=== PATIENT | female | born 1975 | race Caucasian/White ===

== ENCOUNTER 2016-08-13 10:22 | Day surgery (SDC) | payer BC ==
[2016-08-13] MEDS ORDERED: PROPOFOL INJ 200 MG/20 ML VIAL IV ONE (11:14)
--- NOTE | 2016-08-13 12:13 | Operative Report ---
Operative Report DATE OF SURGERY: 08/13/16 Operative Report: The risks benefits and alternatives of the procedure explained to the patient in detail and informed consent is obtained that GIF Olympus video scope was inserted into the patient's mouth and hypopharynx the esophagus is identified intubated and insufflated the scope was then advanced through the esophagus stomach and duodenum retroflexion maneuver is done the esophagus stomach and first and second portions of the duodenum examined PREOPERATIVE DIAGNOSIS: Epigastric pain, gastroesophageal reflux disease. Evaluation for Abraham's esophagus POSTOPERATIVE DIAGNOSIS: Hiatal hernia. Gastritis, status post biopsy rule out Helicobacter pylori. Duodenitis OPERATION: EGD with biopsy SURGEON: GET RAMOS ANESTHESIA: LMAC TISSUE REMOVED OR ALTERED: Gastric specimens obtained rule out Helicobacter pylori COMPLICATIONS: None. ESTIMATED BLOOD LOSS: none. INTRAOPERATIVE FINDINGS: Normal esophagus no evidence of Abraham's esophagus. Small hiatal hernia. Gastritis. Duodenitis PROCEDURE: Patient tolerated the procedure well. No immediate postprocedure complications are noted. Patient is discharged in good condition. Discharge date 08/13/2016. Discharge diet: Regular. Discharge activity: Regular. Patient does have a 2-3 week follow-up to discuss findings. She'll need to get some scheduled for the CT scan which was previously ordered. She is instructed to call the office or proceed to the emergency room if there are any further problems or questions. We'll await biopsies and treat if needed
[2016-08-13 12:16] VITALS: BP 107/73
== END 2016-08-13 12:20 | disposition home or self-care (01) ==
LOC: END 10:22
PROVIDERS: ATTEND Internal Medicine Gastroenterology
PROC: 0DB68ZX Excision of Stomach, Via Natural or Artificial Opening Endoscopic, Diagnostic (ICD-10-PCS; principal; 2016-08-13 14:00)
DX: K21.9 Gastro-esophageal reflux disease without esophagitis (principal); K29.50 Unspecified chronic gastritis without bleeding; K44.9 Diaphragmatic hernia without obstruction or gangrene; K58.9 Irritable bowel syndrome, unspecified; K29.80 Duodenitis without bleeding; Z87.891 Personal history of nicotine dependence; Z79.899 Other long term (current) drug therapy; Z79.1 Long term (current) use of non-steroidal anti-inflammatories (NSAID)
CPT/HCPCS: 43239; 88342 ×2; 88305 ×2; J2704; 740

== ENCOUNTER 2017-03-01 07:42 | Day surgery (SDC) | payer BC ==
[2017-03-01] MEDS ORDERED: MIDAZOLAM 2 MG/2 ML INJ ONE ×2 (09:18)
[2017-03-01] MEDS ORDERED: KETAMINE HCL INJ 500 MG/10 ML VIAL ONE (09:19)
[2017-03-01] MEDS ORDERED: PROPOFOL INJ 200 MG/20 ML VIAL IV ONE (09:19)
[2017-03-01] MEDS ORDERED: DIPHENHYDRAMINE HCL 50 MG/ML VIAL IV PRN (09:53)
[2017-03-01] MEDS ORDERED: MEPERIDINE HCL/PF INJ 25 MG/1 ML DISP.SYRIN IV PRN (09:53)
[2017-03-01] MEDS ORDERED: FENTANYL CITRATE INJ/PF 100 MCG/2 ML AMPUL IV PRN ×3 (09:53)
[2017-03-01] MEDS ORDERED: PROMETHAZINE HCL INJ 25 MG/1 ML VIAL IV PRN ×2 (09:53)
[2017-03-01] MEDS ORDERED: MORPHINE SULFATE 10 MG/ML INJ IV PRN (09:53)
[2017-03-01] MEDS ORDERED: OXYCODONE-ACETAMINOPHEN 5-325 MG TABLET PO PRN ×2 (09:53)
[2017-03-01 10:53] LABS: ABSOLUTE BASOPHILS # (AUTO) 0.1 10^3/uL (0.0-0.2); ABSOLUTE EOSINOPHILS # (AUTO) 0.1 10^3/uL (0.0-0.6); ABSOLUTE LYMPHOCYTES (AUTO) 1.3 10^3/uL (0.5-4.7); ABSOLUTE MONOCYTES (AUTO) 0.5 10^3/uL (0.1-1.4); ABSOLUTE NEUT (AUTO) 2.9 10^3/uL (1.7-8.2); BASOPHILS % (AUTO) 1.3 % (0-2); EOSINOPHILS % (AUTO) 2.1 % (0-6); HEMATOCRIT 37.8 % (36.0-47.0); HEMOGLOBIN 12.8 g/dL (12.0-15.5); HGB HCT DIFFERENCE 0.6; LYMPHOCYTES % (AUTO) 26.5 % (13-45); MEAN CORPUSCULAR HEMOGLOBIN 32.2 pg (27.0-33.4); MEAN CORPUSCULAR HGB CONC 33.9 g/dL (32.0-36.0); MEAN CORPUSCULAR VOLUME 95 fl (80-97); MONOCYTES % (AUTO) 9.9 % (3-13); RED BLOOD COUNT 3.99 10^6/uL (3.72-5.28); RED CELL DISTRIBUTION WIDTH 12.5 % (11.5-14.0); SEGMENTED NEUTROPHILS % (AUTO) 60.2 % (42-78); WHITE BLOOD COUNT 4.8 10^3/uL (4.0-10.5)
[2017-03-01 11:11] LABS: AMYLASE 62 U/L (30-110); CHLORIDE 110 mmol/L (98-107); GLUCOSE 90 mg/dL (75-110); TOTAL PROTEIN 6.4 g/dL (6.3-8.2)
[2017-03-01 11:12] LABS: ALANINE AMINOTRANSFERASE 32 U/L (9-52); ALKALINE PHOSPHATASE 55 U/L (38-126); ANION GAP 10 (5-19); ASPARTATE AMINO TRANSFERASE 19 U/L (14-36); BILIRUBIN,DIRECT 0.3 mg/dL (0.0-0.4); BILIRUBIN,TOTAL 0.3 mg/dL (0.2-1.3); BLOOD UREA NITROGEN 16 mg/dL (7-20); CALCIUM 9.4 mg/dL (8.4-10.2); CARBON DIOXIDE 24 mmol/L (22-30); CREATININE RESULT 1.04 mg/dL (0.52-1.25); LIPASE 159.7 U/L (23-300); POTASSIUM 3.8 mmol/L (3.6-5.0); SODIUM 143.7 mmol/L (137-145)
--- NOTE | 2017-03-01 11:12 | Operative Report ---
Operative Report DATE OF SURGERY: 03/01/17 Operative Report: The risks benefits and alternatives of the procedure explained to the patient in detail and informed consent is obtained.A GIF Olympus video scope was inserted into the patient's mouth and hypopharynx ,the esophagus is identified intubated and insufflated, the scope was then advanced through the esophagus stomach and duodenum, retroflexion maneuver is done, the esophagus stomach and first and second portions of the duodenum examined PREOPERATIVE DIAGNOSIS: Epigastric pain rule out peptic ulcer disease POSTOPERATIVE DIAGNOSIS: Gastritis noted, perhaps bile reflux. Biopsies obtained to rule out for Helicobacter pylori. Lidocaine solution infused into the stomach cavity, 15 cc OPERATION: EGD with biopsy SURGEON: GET RAMOS ANESTHESIA: LMAC - See anesthesia note TISSUE REMOVED OR ALTERED: Gastric mucosal specimen obtained COMPLICATIONS: None. ESTIMATED BLOOD LOSS: None. INTRAOPERATIVE FINDINGS: As described above. PROCEDURE: Patient tolerated procedure well. No immediate postprocedure complications are noted. Patient discharged in good condition. Discharge date 03/01/2017. Discharge diet: Regular. Discharge activity: Regular. 2-3 week follow-up to discuss findings. Patient is instructed to call the office or proceed to the emergency room should there be any further problems or questions. We will wait on pathology.
[2017-03-01 13:04] VITALS: BP 102/66
== END 2017-03-01 11:30 | disposition home or self-care (01) ==
LOC: OROUT 07:42
PROVIDERS: ATTEND Internal Medicine Gastroenterology
PROC: 0DB68ZX Excision of Stomach, Via Natural or Artificial Opening Endoscopic, Diagnostic (ICD-10-PCS; principal; 2017-03-01 09:30)
DX: K29.50 Unspecified chronic gastritis without bleeding (principal); K21.9 Gastro-esophageal reflux disease without esophagitis; E07.9 Disorder of thyroid, unspecified; G43.909 Migraine, unspecified, not intractable, without status migrainosus; F17.210 Nicotine dependence, cigarettes, uncomplicated; Z79.899 Other long term (current) drug therapy
CPT/HCPCS: 43239; 36415; 82150; 82607; 83690; 84703; 85025; 80076; 80048; 88342 ×2; 88305 ×2; J2250; J3490; J2704; 740

== ENCOUNTER 2017-10-04 08:53 | Day surgery (SDC) | payer BC ==
[2017-10-04] MEDS ORDERED: DIPHENHYDRAMINE HCL 25 MG CAPSULE ONE (09:18)
[2017-10-04] MEDS ORDERED: MIDAZOLAM 2 MG/2 ML INJ ONE (10:29)
[2017-10-04] MEDS ORDERED: ONDANSETRON HCL INJ/PF 4 MG/2 ML SDV ONE (10:29)
[2017-10-04] MEDS ORDERED: PROPOFOL INJ 200 MG/20 ML VIAL IV ONE (11:56)
[2017-10-04] MEDS ORDERED: DIPHENHYDRAMINE HCL 50 MG/ML VIAL IV PRN (11:57)
[2017-10-04] MEDS ORDERED: MEPERIDINE HCL/PF INJ 25 MG/1 ML DISP.SYRIN IV PRN (11:57)
[2017-10-04] MEDS ORDERED: PROMETHAZINE HCL INJ 25 MG/1 ML VIAL IV PRN ×2 (11:57)
[2017-10-04] MEDS ORDERED: KETAMINE HCL INJ 500 MG/10 ML VIAL ONE (11:58)
--- NOTE | 2017-10-04 12:16 | Operative Report ---
Operative Report DATE OF SURGERY: 10/04/17 Operative Report: The risks benefits and alternatives of the procedure explained to the patient in detail and informed consent is obtained.A GIF Olympus video scope was inserted into the patient's mouth and hypopharynx, the esophagus is identified intubated and insufflated, the scope was then advanced through the esophagus stomach and duodenum ,retroflexion maneuver is done ,the esophagus stomach and first and second portions of the duodenum examined PREOPERATIVE DIAGNOSIS: Gastritis, possible Helicobacter pylori gastritis POSTOPERATIVE DIAGNOSIS: Gastritis, biopsies obtained OPERATION: EGD with biopsy SURGEON: GET RAMOS ANESTHESIA: LMAC TISSUE REMOVED OR ALTERED: As noted above COMPLICATIONS: None. ESTIMATED BLOOD LOSS: None. INTRAOPERATIVE FINDINGS: As described above PROCEDURE: Patient tolerated procedure well. No immediate postprocedure complications are noted. Patient discharged in good condition. Discharge date October 04, 2017 Discharge diet: Regular. Discharge activity: Regular. 2-3 week follow-up to discuss findings. Patient is instructed call the office or proceed to the emergency room should there be any further problems or questions. We will wait and pathology.
[2017-10-04] MEDS ORDERED: DEXTROSE 5%-1/2 NORMAL SALINE 1,000 ML IV PRN (12:30)
[2017-10-04] MEDS ORDERED: ACETAMINOPHEN 325 MG TABLET PO PRN (12:31)
[2017-10-04] MEDS ORDERED: SIMETHICONE 80 MG TAB.CHEW PO PRN (12:32)
[2017-10-04] MEDS ORDERED: PROMETHAZINE HCL INJ 25 MG/1 ML VIAL INJ PRN (12:32)
[2017-10-04] MEDS ORDERED: ACETAMINOPHEN 100 ML IV ONE (12:35)
[2017-10-04 14:40] VITALS: BP 109/61
== END 2017-10-04 13:25 | disposition home or self-care (01) ==
LOC: OROUT 08:53
PROVIDERS: ATTEND Internal Medicine Gastroenterology
PROC: 0DB68ZX Excision of Stomach, Via Natural or Artificial Opening Endoscopic, Diagnostic (ICD-10-PCS; principal; 2017-10-04 11:00)
DX: K29.50 Unspecified chronic gastritis without bleeding (principal); Z87.891 Personal history of nicotine dependence; Z79.899 Other long term (current) drug therapy
CPT/HCPCS: 43239; 88342 ×2; 88305 ×2; J2250; J3490; J2405; J2704; J0131; 731

== ENCOUNTER 2019-02-05 02:02 | Emergency (ER) | payer BC ==
--- NOTE | 2019-02-05 04:16 | ER Document Report ---
ED General - General Chief Complaint: Psych Problem Stated Complaint: IVC/W PAPERS Time Seen by Provider: 02/05/19 02:59 Primary Care Provider: ALICIA LIVINGSTON MD [Primary Care Provider] - Follow up as needed Mode of Arrival: Ambulatory Information source: Patient TRAVEL OUTSIDE OF THE [place] 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 The patient currently denies suicidal ideation or homi cidal ideation on my questioning. The patient states she is been compliant with her medications, then later states she may have accidentally taken 1 of her 's oxycodone tablets which were next to her pills and she missed took what they were. Patient denies any other medication changes. The patient states she has plans for other things she can do to help her practice and reimbursement issues and she is making future plans, which she points out contradicts any suicidal intent. Patient lives with her at home, who she states is very supportive. She reports her was surprised about the IVC papers. Patient's sister had a history of paranoid schizophrenia and committed suicide by catching herself on fire. Patient reports she has a counselor/colleague that she sees almost on a weekly basis. Medications tramadol, Adderall, Wellbutrin, Topamax, Synthroid, magnesium, Valium 10 mg nightly, taurine - Related Data Allergies/Adverse Reactions: adhesive tape Allergy (Severe, Verified 02/05/19 02:03) RASH, BLISTERS latex Allergy (Intermediate, Verified 02/05/19 02:03) Generalized rash Past Medical History - General Information source: Patient, Law Enforcement - Social History Smoking Status: Never Smoker Frequency of alcohol use: Rare Drug Abuse: None Lives with: Family Family History: Other - Sister with paranoid schizophrenia. - Past Medical History Cardiac Medical History: Denies: Hx Coronary Artery Disease, Hx Heart Attack, Hx Hypertension Pulmonary Medical History: Denies: Hx Asthma, Hx Bronchitis, Hx COPD, Hx Pneumonia Neurological Medical History: Denies: Hx Cerebrovascular Accident, Hx Seizures Musculoskeletal Medical History: Denies Hx Arthritis - Immunizations Hx Diphtheria, Pertussis, Tetanus Vaccination: Yes Review of Systems - Review of Systems -: Yes All other systems reviewed and negative Physical Exam - Vital signs Vitals: Temp Pulse Resp BP Pulse Ox 97.7 F 113 H 20 113/84 99 02/05/19 02:07 02/05/19 02:07 02/05/19 02:07 02/05/19 02:07 02/05/19 02:07 - Notes Notes: PHYSICAL EXAMINATION: GENERAL: Well-appearing, well-nourished and in no acute distress. HEAD: Atraumatic, normocephalic. EYES: Pupils equal round and reactive to light, extraocular movements intact, conjunctiva are normal. ENT: Nares patent, oropharynx clear without exudates. Moist mucous membranes. NECK: Normal range of motion, supple without lymphadenopathy LUNGS: Breath sounds clear to auscultation bilaterally and equal. No wheezes rales or rhonchi. HEART: Regular rate and rhythm without murmurs ABDOMEN: Soft, nontender, nondistended abdomen. No guarding, no rebound. No masses appreciated. Female : deferred Musculoskeletal: Normal range of motion, no pitting or edema. No cyanosis. NEUROLOGICAL: Cranial nerves grossly intact. Normal speech, normal gait. Normal sensory, motor exams PSYCH: Slight flight of ideas, but she states this is consistent with her ADHD. The patient currently denies suicidal or homicidal ideation or hallucinations. Normal affect. Memory intact. SKIN: Warm, Dry, normal turgor, no rashes or lesions noted. Course - Re-evaluation Re-evalutation: 02/05/19 05:41 Patient presented with IVC papers. Patient is medically cleared for psychiatric evaluation and further care. - Vital Signs Vital signs: Temp Pulse Resp BP Pulse Ox 98 F 84 16 117/63 96 02/05/19 02:20 02/05/19 02:20 02/05/19 02:20 02/05/19 02:20 02/05/19 02:20 - Laboratory Result Diagrams: 02/05/19 03:50 02/05/19 03:50 Laboratory results interpreted by me: 02/05/19 02/05/19 03:50 03:50 Potassium 3.5 L Est GFR (Non-Af Amer) 58 L Urine Ascorbic Acid 20 H Acetaminophen < 10 L - EKG Interpretation by Me EKG shows normal: Sinus rhythm Rate: Normal Additional EKG results interpreted by me: 02/05/19 04:18 EKG is interpreted by me showed normal sinus rhythm heart rate of 81. There is no gross evidence for acute MO or ischemia noted. No old EKG available for comparison. Discharge - Discharge Clinical Impression: Involuntary commitment Disposition: PSYCH HOSP/UNIT Referrals: ALICIA LIVINGSTON MD [Primary Care Provider] - Follow up as needed
[2019-02-05 04:19] LABS: ABSOLUTE BASOPHILS # (AUTO) 0.1 10^3/uL (0.0-0.2); ABSOLUTE EOSINOPHILS # (AUTO) 0.1 10^3/uL (0.0-0.6); ABSOLUTE LYMPHOCYTES (AUTO) 1.6 10^3/uL (0.5-4.7); ABSOLUTE MONOCYTES (AUTO) 0.5 10^3/uL (0.1-1.4); ABSOLUTE NEUT (AUTO) 3.6 10^3/uL (1.7-8.2); BASOPHILS % (AUTO) 1.1 % (0-2); EOSINOPHILS % (AUTO) 2.1 % (0-6); HEMATOCRIT 40.3 % (36.0-47.0); HEMOGLOBIN 13.6 g/dL (12.0-15.5); LYMPHOCYTES % (AUTO) 27.6 % (13-45); MEAN CORPUSCULAR HEMOGLOBIN 30.5 pg (27.0-33.4); MEAN CORPUSCULAR HGB CONC 33.7 g/dL (32.0-36.0); MEAN CORPUSCULAR VOLUME 91 fl (80-97); MONOCYTES % (AUTO) 8.8 % (3-13); PLATELET COUNT 240 10^3/uL (150-450); RED BLOOD COUNT 4.46 10^6/uL (3.72-5.28); SEGMENTED NEUTROPHILS % (AUTO) 60.4 % (42-78); TOTAL CELLS COUNTED % (AUTO) 100 %; WHITE BLOOD COUNT 5.9 10^3/uL (4.0-10.5)
[2019-02-05 04:21] LABS: APPEARANCE,URINE SLIGHTLY-CLOUDY; BILIRUBIN,URINE NEGATIVE (NEGATIVE); COLOR,URINE YELLOW; GLUCOSE, URINE NEGATIVE (NEGATIVE); KETONES,URINE NEGATIVE (NEGATIVE); LEUKOCYTE ESTERASE,URINE NEGATIVE (NEGATIVE); NITRITE,URINE NEGATIVE (NEGATIVE); PROTEIN,URINE NEGATIVE (NEGATIVE); URINE SPECIFIC GRAVITY 1.011; UROBILINOGEN,URINE NEGATIVE mg/dL (<2.0)
[2019-02-05 04:40] LABS: URINE BARBITURATES SCREEN NEGATIVE; URINE COCAINE SCREEN NEGATIVE; URINE MARIJUANA (THC) SCREEN NEGATIVE; URINE METHADONE SCREEN NEGATIVE; URINE PHENCYCLIDINE SCREEN NEGATIVE
[2019-02-05 04:41] LABS: ALBUMIN 4.2 g/dL (3.5-5.0); ALKALINE PHOSPHATASE 44 U/L (38-126); ANION GAP 9 (5-19); ASPARTATE AMINO TRANSFERASE 23 U/L (14-36); BILIRUBIN,DIRECT 0.3 mg/dL (0.0-0.4); BILIRUBIN,TOTAL 0.3 mg/dL (0.2-1.3); BLOOD UREA NITROGEN 11 mg/dL (7-20); CALCIUM 9.1 mg/dL (8.4-10.2); CARBON DIOXIDE 25 mmol/L (22-30); CHLORIDE 105 mmol/L (98-107); GLUCOSE 80 mg/dL (75-110); POTASSIUM 3.5 mmol/L (3.6-5.0); TOTAL PROTEIN 6.8 g/dL (6.3-8.2)
[2019-02-05 04:43] LABS: ACETAMINOPHEN < 10 ug/mL (10-30); ALCOHOL < 10 mg/dL (NONE DETECTED)
[2019-02-05 04:46] LABS: URINE BENZODIAZEPINES SCREEN UNCONFIRMED POSITIVE
[2019-02-05 04:56] LABS: FREE T4 (FREE THYROXINE) 1.36 ng/dL (0.78-2.19)
[2019-02-05] MEDS ORDERED: DIPHENHYDRAMINE HCL 50 MG CAPSULE PO ONE (04:56)
[2019-02-05 05:10] LABS: THYROID STIMULATING HORMONE 1.66 uIU/mL (0.47-4.68)
--- NOTE | 2019-02-05 09:31 | ER Document Report ---
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 The patient currently denies suicidal ideation or homicidal ideation on my questioning. As the rounding physician this AM, I assessed the patient's labs, vitals, and records. No concerning findings this morning. Patient denies any acute complaints. Patient is cleared for disposition by behavioral health team. PHYSICAL EXAMINATION: GENERAL: Well-appearing, well-nourished and in no acute distress. HEAD: Atraumatic, normocephalic. EYES: Pupils equal round extraocular movements intact, conjunctiva are normal. ENT: Nares patent NECK: Normal range of motion LUNGS: No respiratory distress Musculoskeletal: Normal range of motion NEUROLOGICAL: Normal speech, normal gait. PSYCH: Agitated, demanding to make a phone call. SKIN: Warm, Dry, normal turgor, no rashes or lesions noted. Impression/plan" 02/05/19 18:27 Medication recommendations of Zyprexa 5 mg twice daily, Cogentin 1 mg daily and Thorazine 50 mg every 8 hours as needed for agitation. At this time IVC will be withheld.
--- NOTE | 2019-02-05 11:24 | EKG REPORT ---
SEVERITY:- NORMAL ECG - SINUS RHYTHM : Confirmed by: Emerita Bella 05-Feb-2019 11:23:38
[2019-02-05] MEDS ORDERED: IBUPROFEN 800 MG TABLET PO ONE (11:26)
[2019-02-05] MEDS ORDERED: CHLORPROMAZINE HCL 50 MG TABLET PO SCH (14:42)
[2019-02-05] MEDS ORDERED: BUPROPION HCL 100 MG TABLET PO ONE (16:55)
[2019-02-05] MEDS: BENZTROPINE MESYLATE INJ 2 MG/2 ML AMPULE IM SCH (18:07)
[2019-02-05] MEDS: OLANZAPINE INJ/PF 10 MG SDV IM SCH (18:16)
--- NOTE | 2019-02-06 10:25 | ER Document Report ---
Doctor's Note Notes: 02/06/19 10:24 Rounds: Patient was brought in for suicidal ideation. 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 She says that she just made a flippant comment about suicide and her staff took her to be serious and had her involuntarily committed. Patient says that she has been under a lot of stress lately because of finances and reimbursements and other things. Lab studies show patient's drug screen to be positive for amphetamines, but the patient is on Adderall. Patient says she has ADHD. Also has chronic pain syndrome. Patient does not want to take the Zyprexa which is recommended for her. She also insists that she needs to be out of this emergency department into her office to take care of her patients that are scheduled today. Patient's conversation is very manic, not pausing at all for input her questions, just continue with his conversation. Vital signs are all essentially normal. Patient appears to be medically stable for transfer or discharge. Stuart Toribio MD
[2019-02-06] MEDS ORDERED: TRIAMCINOLONE ACETONIDE 0.1% CREAM 15 GM TOP PRN (10:36)
[2019-02-06] MEDS: PANTOPRAZOLE SODIUM 20 MG TABLET.DR PO SCH (11:03)
[2019-02-06] MEDS: OLANZAPINE 5 MG TAB.RAPDIS PO SCH ×2 (11:03→18:43)
[2019-02-06] MEDS: BUPROPION HCL 75 MG TABLET PO SCH (11:04)
[2019-02-06] MEDS: BENZTROPINE MESYLATE INJ 2 MG/2 ML AMPULE IM SCH (11:04)
[2019-02-06] MEDS: LEVOTHYROXINE SODIUM 0.112 MG TABLET PO SCH (11:04)
[2019-02-06] MEDS: OLANZAPINE INJ/PF 10 MG SDV IM SCH ×2 (11:05→18:44)
[2019-02-06] MEDS: TOPIRAMATE 100 MG TABLET PO SCH (11:13)
[2019-02-06] MEDS: TRAMADOL HCL 50 MG TABLET PO SCH (12:02)
--- NOTE | 2019-02-06 12:29 | PSYCHOLOGICAL NOTE ---
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 Patient states reports in her IVC petition are incorrect. She denies having bipolar or ever attempting suicide in the past. She reports that she knows that she made some comments on Saturday that she feels was the basis for report. She questions why the IVC petition was not made until Saturday night and feels her staff is retaliating against her because they didn't want to work. She confirms that she stated; "I was so stressed...I could not stand this...I should just eat a bullet." She denies intent. She continued to report that her stress comes from being audited by insurance company and them denying payment. 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 She states that she deflects with humor and that sometimes it can be dark. She reports she is very upset that she has had no access to her cell phones and that [place] will be "co-contributors to any wrongful suits" against her because her patients need to have the ability to contact her 24 hours a day. Patient then goes back to discuss comments she made in regards to suicidal ideation in which she identifies as her "joking." She states that 1 of her staff members had a significant other that killed th emselves by "shooting themselves in the face" and that her employee "thought it would be a great idea for her PTSD to clean up the mess herself after." She states that she made a joking comment she would not make mess on the wall for her staff member to have to clean up; " I said I will not make you clean the wall I will do it Facebook live burned myself and protest." She confirms she feels that she has overextended herself and her staff but states again she strongly feels that they are retaliating against her. Patient then shifts to discuss her medications and starts to list them, to include [id number] regiment ; Vitamin C, Taurine, magnesium, vitamin D with calcium, and fish oil. Patient then starts to discuss that she takes baby aspirin because of a study she read about combating dementia when taking baby aspirin and drinking champagne. She reports that she has 2 bottles of champagne in her fridge at home; however, never gets around to drinking it because the only time she could drink it would be first thing in the morning. She said she cannot drive to work after drink champaine; "could you imagine if I got pulled over because I was speeding to work first thing in the morning after drinking a glass of champagne?" Patient then reports that she is currently experiencing a migraine and feels that she may have accidentally took her 's medication when she was supposed be taking her Synthroid this morning. She states that she cannot take opiates because she has opiate-induced hyperalgesia. She reports his pain medication is right next to her synthroid. Patient then states that she [facility] however states that she never argued it because "why would you argue 70% disability." Patient reports that since she is been able to regulate her pain, she has "had a blissful experience... it can be euphoric.... With a balance of chi." She then goes back to discuss allegations in regards to suicidal ideation stating that her vehicle always seems to be on empty with the light on. At first patient's transition to new topic is unclear; however, then discusses that she had requested her staff to research where she could purchase gas cans because she did not want to waste time driving around to find them. She states that she thought it would be a good idea to drive around with gas cans in her vehicle because she is always running out. She states this was the basis on them alleging she may burn herself. She denies this again and states that her sister killed herself by setting herself on fire and that suicide is like a suicide bomber going into a place and setting it off; "there is a [place] of around them." Patient begins to discuss her thoughts and feelings in regards to people committing suicide and the effects that has on others stating that her sister's affected her "her body, mind, and soul" because of her sister's suicide (sister committed suicided with patient was 15 years old). Patient states she found the perfect explanation of what suicide does to loved ones while watching blacklist. She states that they compared it to a suicide bomber and that really resonated with her, so she now makes her patients watch that clip. Clinician notes patient goes on talking about the clip then Lucio Mukherjee in his family. Patient reports that she has ADHD and if she is not medicated correctly, it may appear that she is manic. She states her current presentation is her baseline. She adamantly denies that she has bipolar. Clinician spoke with Lela, patient's employee that was part of [employer] petition. She reports concern that the patient has escalated in erratic behaviors and suicidal ideation. She disclosed "she (the patient) has been telling her patients that she is been having suicidal ideation and expressed to staff members potential plans." She continued to disclose that over the last few weeks, the patient has had increased suicidal comments which has progressed to disclosing to patient's during sessions that she has personally thought of killing herself. She has mentioned both shooting herself and setting herself on fire. She continued to disclose that the patient had made a comments, through text, to her Staff stating she would kill herself because the practice would not be the same with out her staff. There was also concerns that the patient had as ked Lela to obtain information on where she could purchase a portable gas container, then when leaving work the patient told Lela in regards to the gas can "do not worry I wont use a bullet so you do not have to clean up anymore mess. I am just going to light myself on fire with a gas can inside my [place] and Facebook live my manifesto." She discloses concern that the patient had demonstrated increased in irrational thoughts and was texting her staff members at 346 in the morning ranting about filling appointment slots. She disclosed that earlier in the evening the patient was asking how to use Facebook live through text messages in regards to privacy settings etc. Patient stated "can't have all my shit on blast unless its a dying declaration...." She continued to disclose that the patient is currently lost privileges with which she identifies as the start of the downward spiral for the patient. Staff provided screenshots of text messages and pictures of paperwork on investigation against patient in regards to "immediate threat to health or safety, nonsexual dual relationship or boundary violation, violation of code of ethics, and other unprofessional conduct; inappropriate discussions with vulnerable patients." Staff reports that the patient has been discussing her thoughts on wanting to kill herself with psychiatric patients. They also disclosed concern that patient had been researching how long it takes to by fire and remote areas in [facility] on her computer (patient left open tabs on her computer with this information). [facility]. Patient has diagnosis of major depressive disorder and is received 70% disability specifically for that diagnosis. All other diagnoses from the [facility] are medical. They provided patient's current medication list: Wellbutrin 150 mg twice daily Diazepam 10 mg 3 times daily Benadryl 50 mg 4 times daily as needed for allergies Ibuprofen 800 mg 3 times daily Synthroid 0.125 take 1 tablet by mouth daily on empty stomach 30 minutes before meal, take half tablet on Saturdays omeprazole 20 mg daily prochlorperazine merleate 10mg 3 times daily as needed for nausea Rizatriptan Benzoate 10mg twice daily as needed for migraine may repeat dose in 2 hours if needed topamax 200 mg daily tramadol 100 mg 4 times daily triamcinolone acetonide 0.1% cream apply to affected area twice daily Non [facility] prescription of Adderall 20 mg tablet; take 20 mg by mouth twice daily Clinician spoke with patient's who expresses his disbelief in the concerns for patient's suicidal ideation. 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 He confirms they have plan of care and contingent plans in emergency situations and agrees to in act the contingent plan for continued access to care in emergency situations. Patient is alert and orientated to person, place, time and circumstance. Mood is manic with congruent affect. Patient denies suicidal homicidal ideation stating that is just a dark sense of humor. Delusions are absent. Thought content is tangential. Eye contact is poor. Conversational speech is pressured. Psychomotor agitation is noted with constant movement. Patient's hands have noted tremors. Intellectual abilities appear to be average range. attention and concentration are poor. Insight, judgment, impulse control are poor. Major depressive disorder per history provided by [facility] R/O Bipolar; patient is currently demonstrating manic R/O PTSD Clinician notes patient reports ADHD diagnosis however this diagnosis is not listed with the [place] Medication recommendations per [facility]'s contracted psychiatrist Dr.Akintayo FRAZIER are as follows: Zyprexa 5 mg twice daily Cogentin 1 mg daily Thorazine 50 mg every 8 hours as needed please decrease home medication of Wellbutrin to 150 mg daily please discontinue home medication of Adderall and Diazepam Impression\\plan: Patient is recommended to continue under IVC. Patient is demonstrating significant issues and insight and judgment in regards to comments that she identifies as joke to her staff members. There is concern that the patient has made multiple suicidal ideation comments over the last few weeks, then started to research and obtain means the last 2 days. Patient presents manic with tangential thoughts and pressured speech. Medication augmentations have been provided. Dr. Vick was consulted to care management of this patient; attending physicians in agreement with augmentations and disposition.
[2019-02-06] MEDS: RIZATRIPTAN 10 MG PO PRN (15:36)
[2019-02-06] MEDS ORDERED: PROCHLORPERAZINE MALEATE 10 MG TABLET PO ONE (21:25)
[2019-02-06] MEDS ORDERED: DIPHENHYDRAMINE HCL 50 MG/ML VIAL IM ONE (21:29)
[2019-02-06] MEDS ORDERED: IBUPROFEN 800 MG TABLET PO ONE (21:30)
[2019-02-07] MEDS: TRAMADOL HCL 50 MG TABLET PO SCH ×3 (02:37→17:41)
[2019-02-07] MEDS: LEVOTHYROXINE SODIUM 0.112 MG TABLET PO SCH (09:43)
[2019-02-07] MEDS: BENZTROPINE MESYLATE 1 MG TABLET PO SCH (09:44)
[2019-02-07] MEDS: CHLORPROMAZINE HCL 50 MG TABLET PO PRN (09:44)
[2019-02-07] MEDS: PANTOPRAZOLE SODIUM 20 MG TABLET.DR PO SCH (09:44)
[2019-02-07] MEDS: TOPIRAMATE 100 MG TABLET PO SCH (09:45)
[2019-02-07] MEDS: OLANZAPINE 5 MG TAB.RAPDIS PO SCH ×2 (09:45→17:41)
[2019-02-07] MEDS: BUPROPION HCL 75 MG TABLET PO SCH ×2 (09:45→20:49)
[2019-02-07] MEDS: OLANZAPINE INJ/PF 10 MG SDV IM SCH ×2 (09:46→17:38)
[2019-02-07] MEDS: RIZATRIPTAN 10 MG PO PRN ×2 (09:53→20:28)
[2019-02-07] MEDS: PROCHLORPERAZINE MALEATE 10 MG TABLET PO PRN ×2 (09:53→20:28)
--- NOTE | 2019-02-07 10:31 | ER Document Report ---
Doctor's Note Notes: 02/07/19 10:29 Rounds: Chart reviewed. Patient sleeping at this time so not interviewed. Patient is being evaluated and treated for bipolar disorder with manic presentation. History of depression. Mental health has evaluated the patient says that he thinks she is improving on the medication regimen prescribed here. No new lab studies to look at today. Patient's drug screen was positive for benzos, opiates, and amphetamines. Patient is on Adderall. Vital signs are also normal. Patient appears to be medically stable for transfer or discharge. Stuart Dolan MD 02/07/19 15:42 Patient is now awake and she is complaining of a migraine headache. Will order medications that she usually receives. Vital signs are all normal. Patient appears to be medically stable for transfer or discharge. Patient is unhappy that she is not being discharged to go home because she has multiple treatment modalities for herself letter including a support dog. Stuart Dolan MD. (LAUREN DOLAN) 02/07/19 20:13 Patient is requesting her Wellbutrin be provided to her twice a day. Review of chart notes patient was taken 150 mg p.o. of Wellbutrin every 12 hours. Order changed (FEDERICO BROUSSARD)
[2019-02-07] MEDS: IBUPROFEN 800 MG TABLET PO PRN (16:48)
[2019-02-07] MEDS: DIPHENHYDRAMINE HCL 50 MG/ML VIAL IM PRN (16:48)
[2019-02-07] MEDS ORDERED: BUPROPION HCL 75 MG TABLET ONE (20:40)
[2019-02-07] MEDS ORDERED: DIVALPROEX SODIUM 250 MG TABLET.DR PO ONE (20:41)
[2019-02-07] MEDS: DIVALPROEX SODIUM 250 MG TAB.SR.24H PO SCH (20:49)
--- NOTE | 2019-02-08 09:52 | ER Document Report ---
Doctor's Note Notes: 02/08/19 09:49 Patient seen and evaluated. She has no eye contact and does have rapid pressured speech with some psychomotor agitation. She does not wish for me to turn all the lights on to wake up and have a full discussion. She did allow me to turn a small light on in the back of the room. Patient remained lying down with eyes closed during our conversation. She is requesting to speak with her and daughter as well as her [address] hearing to appeal her IVCs. I discussed this with Layne who is on for psych today who informed me that since we are not a inpatient facility we have no access to a wallet assembler and therefore patient's IVC paperwork is still in place. Patient does still deny being suicidal but states "I guess there is nothing I can do about that now". Reviewing patient's previous notes I do feel she would benefit from further psychiatric evaluation. Currently she is awaiting placement for inpatient psychiatric care. Patient is medically stable for transfer.
[2019-02-08] MEDS: PANTOPRAZOLE SODIUM 20 MG TABLET.DR PO SCH (10:00)
[2019-02-08] MEDS: TRAMADOL HCL 50 MG TABLET PO SCH ×2 (10:31→17:23)
[2019-02-08] MEDS: DIVALPROEX SODIUM 250 MG TAB.SR.24H PO SCH ×2 (10:39→17:25)
[2019-02-08] MEDS: BENZTROPINE MESYLATE 1 MG TABLET PO SCH (10:39)
[2019-02-08] MEDS: OLANZAPINE 5 MG TAB.RAPDIS PO SCH ×2 (10:39→17:23)
[2019-02-08] MEDS: LEVOTHYROXINE SODIUM 0.112 MG TABLET PO SCH (10:40)
[2019-02-08] MEDS: BUPROPION HCL 75 MG TABLET PO SCH ×2 (10:40→17:26)
[2019-02-08] MEDS: TOPIRAMATE 100 MG TABLET PO SCH (10:41)
--- NOTE | 2019-02-08 12:03 | PSYCHOLOGICAL NOTE ---
Psych Note - Psych Note Date seen by psych provider: 02/08/19 Time seen by psych provider: 09:45 - Evaluation from [id number]. Psych Note: Presenting Problem: IVC, Si with plans to set self on fire or shoot self (means, access, started preparing), Hx Bipolar/MDD/ADD-ADHD, increased stress, poor sleep. Patient presented between a manic and hypomanic state, with pressured speech, and tangential thinking. She remained in bed however used her hands to touch her face, especially eye area, often. She denied SI. She reported her Auddi has been running on fumes and that is why she asked her communications administrator to order gas containers. 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 She stated she has a Carry and Conceal and has a loaded gun most of the time. 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 She denied having a history or diagnosis of Bipolar. When informed of medication changes she mentioned issues with medications (Trileptal, Depakote and others) and her complex pain syndrome.
[2019-02-08] MEDS: OLANZAPINE INJ/PF 10 MG SDV IM SCH ×2 (13:48→17:27)
[2019-02-08] MEDS: CHLORPROMAZINE HCL 50 MG TABLET PO PRN (17:25)
[2019-02-08] MEDS: DIPHENHYDRAMINE HCL 50 MG/ML VIAL IM PRN (17:41)
[2019-02-08] MEDS: PROCHLORPERAZINE MALEATE 10 MG TABLET PO PRN (17:42)
[2019-02-08] MEDS: IBUPROFEN 800 MG TABLET PO PRN (17:43)
[2019-02-09 07:08] VITALS: BP 91/57
[2019-02-09] MEDS: PANTOPRAZOLE SODIUM 20 MG TABLET.DR PO SCH (09:13)
[2019-02-09] MEDS: CHLORPROMAZINE HCL 50 MG TABLET PO PRN (09:13)
[2019-02-09] MEDS: PROCHLORPERAZINE MALEATE 10 MG TABLET PO PRN (09:13)
[2019-02-09] MEDS: OLANZAPINE 5 MG TAB.RAPDIS PO SCH (09:13)
[2019-02-09] MEDS: DIVALPROEX SODIUM 250 MG TAB.SR.24H PO SCH (09:13)
[2019-02-09] MEDS: DIPHENHYDRAMINE HCL 50 MG/ML VIAL IM PRN (09:14)
[2019-02-09] MEDS: BENZTROPINE MESYLATE 1 MG TABLET PO SCH (09:14)
[2019-02-09] MEDS: TRAMADOL HCL 50 MG TABLET PO SCH (09:14)
--- NOTE | 2019-02-09 09:21 | ER Document Report ---
Doctor's Note Notes: 02/09/19 09:19 Patient seen and examined. In short this is a 43-year-old female who is here under IVC, being transported to [place] this morning. Patient still remains vehemently adamant that she is not suicidal. She states she just feels overwhelmed. She claims that her nursing secretary who filed the IVC "has borderline t endencies." She states that she is not suicidal, nor she homicidal. She states that this action is only putting her deeper in debt and more concerned for her career. On physical exam this is a pleasant female who appears her stated age in no acute distress. She is speaking rapidly, exhibiting significant stream of consciousness, borderline manic at this moment. Heart is regular rate and rhyth m, lungs are clear to oscillation bilaterally. Patient is awake and alert, cooperative with examiner. Patient will be transported by [facility]'s department to [place] this morning for continuation of psychiatric care. She is medically cleared.
[2019-02-09] MEDS: BUPROPION HCL 75 MG TABLET PO SCH (09:26)
== END 2019-02-09 09:28 ==
LOC: EEVIPCON 02:02 → ER 02:02
DX: Z04.6 Encounter for general psychiatric examination, requested by authority (principal); Z59.8 Other problems related to housing and economic circumstances; E03.9 Hypothyroidism, unspecified; F90.9 Attention-deficit hyperactivity disorder, unspecified type; Z79.899 Other long term (current) drug therapy; Z79.891 Long term (current) use of opiate analgesic; Z91.040 Latex allergy status; Z81.8 Family history of other mental and behavioral disorders
CPT/HCPCS: 93005; 99285; 96372; 36415; 84439; 80307 ×3; 84443; 85025; 81025; 80053; 81001; 93010; J0515; J3490 ×16; J1200 ×4; S0183 ×4